=== PATIENT | female | born 1985 ===

== ENCOUNTER 2018-09-02 05:27 | Inpatient (IN) | payer MEDICAID ==
[2018-09-02] MEDS ORDERED: Lactated Ringer's 1,000 ML IV ONE (06:03)
[2018-09-02 06:04] VITALS: BMI 26.4
[2018-09-02 06:37] LABS: BASO # 0.1 K/uL (0.0-0.2); BASO % 0.6 % (0.0-2.0); EOS # 0.1 K/uL (0.0-0.7); EOS % 0.9 % (0.0-4.0); HEMOGLOBIN 9.6 g/dL (12.0-16.0); LYMPH % 34.1 % (20.0-40.0); MEAN CELL VOLUME 71.7 fl (81.0-99.0); MEAN CORPUSCULAR HEMOGLOBIN 22.8 pg (27.0-31.0); MEAN CORPUSCULAR HGB CONC 31.7 g/dL (33.0-37.0); MEAN PLATELET VOLUME 9.2 fl (7.2-11.7); MONO # 0.8 K/uL (0.0-0.8); MONO % 8.6 % (0.0-10.0); NEUT # 4.9 K/uL (1.8-7.0); NEUT % 55.8 % (50.0-75.0); RBC 4.22 Mil/uL (3.80-5.20); RED CELL DISTRIBUTION WIDTH 15.3 % (11.5-14.5); WHITE BLOOD COUNT 8.8 K/uL (4.8-10.8)
[2018-09-02] MEDS ORDERED: ceFAZolin 1 GM in Sodium Chloride 0.9% 100 ML IVPB ONE (06:37)
[2018-09-02] MEDS ORDERED: Lactated Ringer's 1,000 ML IV SCH ×3 (07:00→12:32)
[2018-09-02] MEDS ORDERED: Oxytocin 30 UNIT 30 UNITS/500 ML BAG IV ONE (07:34)
[2018-09-02] MEDS ORDERED: OXYTOCIN/0.9 % NS 20 UNIT/1,000 ML BAG IV SCH ×2 (07:45→12:32)
--- NOTE | 2018-09-02 08:09 | OBADHP ---
Datetime: 09/02/2018 06:17 IP Adm Impression Other: Previous C/S x 3 at term; declines sterilzation Admit Comment, IP Provider: 33 yo with IUP at 39.0 based on MIKALA of 09/09/18 presents to L _ D for scheduled repeat . She denies vaginal bleeding, contractions, loss of fluid and she rep orts good movement. Denies chest pain, shortness of breath, dysuria, nausea and vomiting. She f ollows at [facility] and last appointment was last Wednesday. ROS: systems reviewed and negative except for stated above in HPI. Obhx: 1 SAB; 1 IAB; 3x c-sections 2009; 2012; and 2016. 2 sections were at 32 wks and 33 wks becau se of anhydramnios. History of PPH and transfusion in second ? PMHx: Iron deficiency anemia Family hx: denies Social hx: No smoking, drinking or illicit drug use. Surgical history: Cholecystectomy; 3x c-sections Allergies: N.K.D.A Medications: PNV; Ferrous sulfate Labs: HIV: negative HbsAG: negative Rubella: immune GBS: POSITIVE Gc/Cl: negative RPR: negative ABO: O+ Antibody: negative TDAP: 08/10/18 Physical exam: Patient in no acute distress. Heart: S1 and S2 appreciated on exam. No murmurs, gallops or rubs. Lungs: Clear air entry bilaterally. Abdomen: Gravid, soft, non-tender to palpation. No CVA tenderness FHT: 130 baseline; moderate variability; acceleration 15 x 15 noted; no decelerations; Category 1 bedside ultrasound- Cephalic position. A/P: 33 yo with IUP at 39.0 based on MIKALA of 09/09/18 admitted for scheduled repeat C-sectio n. - Admit to L and D scheduled - Cbc - Type and Screen - 2 L bolus of LR - continous monitoring. Discussed case with --Malgorzata Duran, PGY1 OB Hospitalist on-call. At 7:30am, I saw and spoke with this patient. She was scheduled for repe at C/S at term/previous C/S x 3 (anterior placenta). She was counselling about procedure with risks/ complications inc placenta accreta/percreta an increta, future preg (need for repeat C/S + same/addit ional risks with each C/S). She does not want sterilizatoin. Her present during discussion. Methods of contraception discussed after delivery incl vasectomy/IUD/Depo/ IUDs... Informed consent obtained. Ordered another IV access and blood PRBC ordered for type and cross MAHNDO Pelvic Type - PN: Adequate Extremities - PN: Normal Abdomen - PN: Normal Back - PN: Normal Breast - PN: Not Done Lungs - PN: Normal Heart - PN: Normal Thyroid - PN: Not Done Neurologic - PN: Not Done HEENT - PN: Not Done General - PN: Normal FHR - Baseline A Provider: 130 Comments, ACOG Physical Exam: Abd Vertical and pfannenstiel incision Vital Signs Provider: Reviewed; Within Normal Limits IP Chief Complaint: Scheduled Section NICHD Variability Prov Fetus A: Moderate 6-25bpm NICHD Accel Fetus A IP Provider: [id number] NICHD Decel Fetus A IP Provider: None Genitourinary Exam: Normal DTRs - PN: Not Done IP Adm Impression: Term, intrauterine ; No Active Labor; Intact Membranes IP Admit Plan: Admit to unit; Initiate Section protocol Datetime: 09/02/2018 06:09 FHR Category Provider Fetus A: Category I
[2018-09-02] MEDS ORDERED: ceFAZolin IV 2 gm in Dextrose 2 GM/50 ML BAG IVPB ONE (08:19)
[2018-09-02] MEDS ORDERED: Morphine 1 mg/ml preservative-free Inj(Duramorph) ONE (08:20)
[2018-09-02] MEDS ORDERED: ePHEDrine 50 mg/ml Inj ONE (08:30)
[2018-09-02] MEDS ORDERED: Phenylephrine 10 mg/ml Inj ONE (08:30)
[2018-09-02] MEDS ORDERED: Sodium Chloride 0.9% 10 ML IV ONE (08:33)
[2018-09-02] MEDS ORDERED: Oxycodone/Acetaminophen 5/325 mg Tab PO PRN (10:21)
[2018-09-02] MEDS ORDERED: Morphine 1 mg/ml preservative-free Inj(Duramorph) IT ONE (10:50)
[2018-09-02] MEDS ORDERED: DiphenhydrAMINE 50 mg/ml Inj IVP PRN ×2 (10:50→12:32)
[2018-09-02] MEDS ORDERED: Nalbuphine HCL 10 mg/ml Ampule IVP PRN (14:32)
[2018-09-02] MEDS ORDERED: Nalbuphine 20 mg/ml Inj (1 ml) IVP PRN (15:00)
[2018-09-02] MEDS: Oxycodone/Acetaminophen 5/325 mg Tab PO PRN ×2 (17:19→21:41)
[2018-09-03] MEDS: Oxycodone/Acetaminophen 5/325 mg Tab PO PRN ×4 (01:37→19:34)
[2018-09-03 07:12] LABS: HEMOGLOBIN 7.2 g/dL (12.0-16.0); MEAN CELL VOLUME 71.9 fl (81.0-99.0); MEAN CORPUSCULAR HEMOGLOBIN 22.4 pg (27.0-31.0); MEAN CORPUSCULAR HGB CONC 31.1 g/dL (33.0-37.0); RBC 3.22 Mil/uL (3.80-5.20); RED CELL DISTRIBUTION WIDTH 14.9 % (11.5-14.5); WHITE BLOOD COUNT 18.5 K/uL (4.8-10.8)
[2018-09-03] MEDS: Multivitamin With Minerals Tab PO SCH (08:35)
[2018-09-03] MEDS ORDERED: Multivitamin With Minerals Tab PO SCH (09:00)
--- NOTE | 2018-09-03 18:52 | OBPPN ---
Datetime: 09/03/2018 05:54 PP Pain Prov: Within normal limits PP Nausea Prov: Denies PP Flatus Prov: Yes PP BM Prov: No PP Breasts Prov: Not Done PP Heart Prov: Normal PP Lungs Prov: Normal PP Abdomen/Uterus Prov: Normal PP Lochia Prov: Normal PP Vulva/Perineum Prov: Normal PP CVA Tenderness Prov: Normal PP Extremities Prov: Normal PP C/S Incision Prov: Normal PP Progress Prov: Normal PP Impression Prov: Normal progression PP Plan Prov: Continue present management PP Progress Note Prov: POD 1 S: 33 yo s/p on 09/02/2018. Pt. is seen and examined at bedside this AM. No ove rnight events. Pt reports mild abdominal pain, but well controlled with pain meds. D/c esqueda, dressin g will be removed at 9 am (24 hr postop), incision site no visualized, dry and intact. No nausea, ad vised to advance diet as tolerated. Breast feeding without difficulty. Lochia is similar to menses vo lume. No bowel movement, but passing gas per rectum. Denies fever/chills, diarrhea, nausea/vomiting, chest pain, dyspnea, and dizziness. O: Vitally stable GEN: in no acute distress. Cardio: S1S2, no murmurs, gallops or rubs. Lungs: clear breath sounds b/l, no wheezing Abdomen: BS+, tenderness to palpation. Incision scar noted, well healing with no exudate seen, dry and intact. Uterus is firm and at the level of the umbilicus. EXT: No edema, calves nontender NEURO/PSYCH: AAOx3, no grossly focal deficits, preserved affect and mood. Assessment/Plan: 33 yo s/p on 09/02/2018. Pt remains afebrile, tolerating pain w ith medication, doing well on POD # 1. OOB with caution SCDs for DVT prophylaxis, encouraged ambulating Percocet 5/325mg, and Motrin 600mg for pain. Colace 100mg PO BID Encourage and ambulating f/u CBC post op, pending Anticipated d/c to home, 09/05/2018. --- Malgorzata Duran MD PGY-1. Attending Note: Patient was discussed with resident and I agree with the above assessment. IP PP Procedures: None Vital Signs Provider PP: Reviewed; Within Normal Limits
[2018-09-04] MEDS: Oxycodone/Acetaminophen 5/325 mg Tab PO PRN ×6 (00:11→23:00)
[2018-09-04] MEDS: Multivitamin With Minerals Tab PO SCH (08:20)
--- NOTE | 2018-09-04 10:06 | OBPPN ---
Datetime: 09/04/2018 07:24 PP Pain Prov: Within normal limits PP Nausea Prov: Denies PP Flatus Prov: Yes PP BM Prov: No PP Breasts Prov: Not Done PP Heart Prov: Normal PP Lungs Prov: Normal PP Abdomen/Uterus Prov: Normal PP Lochia Prov: Normal PP CVA Tenderness Prov: Not Done PP Extremities Prov: Normal PP C/S Incision Prov: Normal PP Progress Prov: Normal PP Impression Prov: Normal progression PP Plan Prov: Continue present management PP Progress Note Prov: 33 yo s/p on 09/02/2018. Pt. is seen and examined at bedsid e this AM. No overnight events. Reports tolerating PO regular diet. Breast feeding without difficulty . Lochia is similar to menses volume. Denies bowel movement, but passing gas. Vitals stable GEN: in no acute distress. Cardio: S1S2, no murmurs, gallops or rubs. Lungs: clear breath sounds b/l, no wheezing Abdomen: BS+, tenderness to palpation. Incision scar noted, well healing with no exudate seen, dry and intact. Uterus is firm and at the level of the umbilicus. EXT: No edema, calves nontender NEURO/PSYCH: AAOx3, no grossly focal deficits, preserved affect and mood. Assessment/Plan: 33 yo s/p on 09/02/2018. Pt remains afebrile, tolerating pain with medication, d oing well on POD # 2. OOB with caution Percocet 5/325mg, and Motrin 600mg for pain. Colace 100mg PO BID Encourage and ambulating Anticipated d/c to home tomorrow Shawnee Mcgraw PGYI. Attending Note: patient was seen and reviewed with Resident and I agree with the above. Vital Signs Provider PP: Reviewed
--- NOTE | 2018-09-04 13:15 | NBPN ---
Datetime: 09/04/2018 13:09 Nsy Prov Gen Appearance: Within Normal Limits Nsy Prov Skin: Within Normal Limits Nsy Prov Neuro: Normal Tone Nsy Prov Musculoskeletal: Within Normal Limits Nsy Prov Head: Normal Fontanelles; Normocephalic; Sutures WNL Nsy Prov EENT: Mouth Within Normal Limits; Ears Within Normal Limits; Nose Within Normal Limits; Fac e Within Normal Limits Nsy Prov Cardiovascular: Within Normal Limits; Normal Pulses Nsy Prov Respiratory: Within Normal Limits Nsy Prov GI: Within Normal Limits; Soft; Normal Liver; Non Palpable Spleen Nsy Prov Gen Appearance Details: sleeping on mom prone. I did not disturb for full PE. With calm (ex perienced) parents Nsy Prov Neuro Details: normal flexed posture Nsy Prov Impression: Healthy Term [place]; Vital Signs Appropriate; Bonding Appropriately; Voiding a nd Stooling Nsy Prov Plan: Continue [place] Care Nsy Prov Impression/Plan Details: Term repeat C/S to GBS(+) mom. Baby bottle and breast feeding with urine and stool and weight loss in range. S/p hep B. Screening labs (-). Education and support.
[2018-09-05] MEDS: Oxycodone/Acetaminophen 5/325 mg Tab PO PRN (03:47)
--- NOTE | 2018-09-05 07:22 | OBPPN ---
Datetime: 09/05/2018 06:36 PP Nausea Prov: Denies PP Flatus Prov: Yes PP BM Prov: No PP Breasts Prov: Not Done PP Heart Prov: Normal PP Lungs Prov: Normal PP Abdomen/Uterus Prov: Normal PP Lochia Prov: Normal PP Vulva/Perineum Prov: Not Done PP CVA Tenderness Prov: Not Done PP Extremities Prov: Normal PP C/S Incision Prov: Normal PP Progress Prov: Normal PP Impression Prov: Normal progression PP Plan Prov: Continue present management PP Progress Note Prov: 33 yo s/p on 09/02/2018. Pt. is seen and examined at bedsid e this AM. No overnight events. Pt reports mild abdominal pain, but well controlled with pain meds. D /c esqueda, dressing removed, incision site healing well, no exudate seen, dry and intact. No nausea, t olerating full diet. Breast feeding without difficulty. Lochia is similar to menses volume. No bowel movement, but passing gas per rectum. Denies fever/chills, diarrhea, nausea/vomiting, chest pain, dys pnea, and dizziness. O: VS: stable GEN: NAD Cardio: S1S2, no murmurs Lungs: clear breath sounds b/l, no wheezing Abdomen: BS+, tenderness to palpation. Incision scar noted, well healing with no exudate seen, dry and intact. Uterus is firm and at the level of the umbilicus. EXT: No edema, calves nontender NEURO/PSYCH: preserved affect and mood. Assessment/Plan: 33 yo s/p on 09/02/2018. Pt remains afebrile, tolerating pain w ith medication, doing well on POD# 3. OOB with caution -Percocet 5/325mg, and Motrin 600mg for pain. -Colace 100mg PO BID for constipation -Encourage and ambulating -CBC post-op 7.2/23.2 (asymptomatic; 9.6/30.2 at admission) Anticipated d/c to home, 09/05/2018. Case discussed with Dr Odom ---Maritza Javier, PGY1 [facility] OB Hospitalist Addendum: Pt seen and examined by me. Agree w/ above. POD 3 s/p repeat c/s, doing well, breast and bottle feeding. Discharge home today. (ES) IP PP Procedures: None Vital Signs Provider PP: Reviewed; Within Normal Limits
[2018-09-05] MEDS: Multivitamin With Minerals Tab PO SCH (09:00)
--- NOTE | 2018-09-05 09:15 | OP ---
PROCEDURE DATE: 09/02/2018 PREOPERATIVE DIAGNOSES: 1. Intrauterine at 39 weeks' gestation. 2. Previous section x3, declined voluntary sterilization. POSTOPERATIVE DIAGNOSES: 1. Intrauterine at 39 weeks' gestation. 2. Previous section x3, declined voluntary sterilization. PROCEDURE: Repeat low transverse section via previous vertical skin incision. SURGEON: Gil Mckeon DO ANALYST PROGRAMMER: Guevara Encinas MD. (Dr. Guevara Encinas is a board certified OB-SPINAL SURGEON physician who happened to be available to assist on this difficult case. He was present from the time of skin incision to delivery of the infant to the closure of the skin. His presence was vital and necessary with the possibility of the risk and complication associated with the procedure). ANESTHESIOLOGIST: Dr. Villagran. ANESTHESIA: Spinal. OPERATIVE FINDINGS: Live female delivered from a cephalic presentation. One loose nuchal cord noted. Infant was crying spontaneously, bulb suctioned, and Apgars were 9 and 9 given at 1 and 5 minutes respectively. Placenta was delivered intact spontaneously. Ovaries and tubes appear to be within normal limits, grossly. She remained hemodynamically stable throughout the procedure. ESTIMATED BLOOD LOSS: 800 mL. DESCRIPTION OF PROCEDURE: The patient was brought to the operating room after a successful spinal anesthesia. She was placed in the supine position. She had compression boots at both lower extremities. A catheter was used to drain the bladder with contents and noted to be draining clear urine and left in place. She was placed in supine position. Once adequate anesthesia was obtained, a scalpel was used to remove the previous vertical surgical scar. Using a scalpel, an incision was then taken down underlying fascia using electrocautery. The fascia was identified, nicked, and then the incision was then extended superiorly and inferiorly, and able to identify the peritoneum superiorly. This was incised using Metzenbaum scissors after it was tented up. This incision was then extended superiorly and inferiorly with direct visualization of bladder and intestines. No adhesions were noted. The bladder blade was then inserted. Bladder flap was created by incising peritoneum on the uterus above the bladder line. There was a thin lower uterine segment noted, able to identify the infant's head. First, the peritoneum was incised and then extended bilaterally using Metzenbaum scissors. Bladder blade was then inserted behind the bladder flap. Low transverse incision was made using scalpel. Upon entering the uterus, the incision was then extended bilaterally using bandage scissors. Infant's head was delivered as traumatically as possible. Clear fluid was noted. Loose nuchal cord was reduced successfully, and the remainder of the was then delivered as atraumatically as possible. Cord was clamped and cut, and infant was handed to commercial drone pilot in attendance. Placenta was delivered intact spontaneously after cord bloods were obtained. Uterus was then exteriorized. Good contracture of the uterus was noted. A 0 Vicryl suture was used to close the first layer of the uterus in a locking fashion. Second layer of the uterus was closed using 0 Vicryl suture imbricating the first layer. Good hemostasis was assured. Posterior cul-de-sac noted to be cleared of debris and clots. Copious irrigation was performed. Ovaries and tubes appeared to be within normal limits grossly. The uterus was then placed back into peritoneal cavity. A low uterine segment was noted to have good hemostasis. Thereafter, the incision was made to close the fascial layer. This was done using 0 PDS suture x2 in a running fashion. A 2-0 plain suture was used to approximate the subcuticular layer. Skin joshua were then placed. Pressure bandage applied. She tolerated the procedure well and was transferred to the recovery room in stable condition. Gil Mckeon DO
[2018-09-05 21:46] VITALS: BP 115/67; PULSE 82; RESP 20; TEMP 98; O2SAT 99
== END 2018-09-05 17:25 | disposition home or self-care (01) | DRG 371 ==
LOC: H.EROB2 05:27 → H.L&D 05:47 → H.OB/GYN 12:15
PROVIDERS: ADMIT Obstetrics & Gynecology; ATTEND Obstetrics & Gynecology
PROC: 10D00Z1 Extraction of Products of Conception, Low, Open Approach (ICD-10-PCS; principal; 2018-09-02)
DX: O34.211 Maternal care for low transverse scar from previous cesarean delivery (principal); O69.81X0 Labor and delivery complicated by cord around neck, without compression, not applicable or unspecified; O99.824 Streptococcus B carrier state complicating childbirth; Z37.0 Single live birth; Z3A.39 39 weeks gestation of pregnancy